=== PATIENT | female | born 1985 | race Hispanic/Latino ===

== ENCOUNTER 2017-12-14 22:35 | Emergency (ER) | payer SELFPAY ==
--- NOTE | 2017-12-15 00:02 | ER ---
Nurse's Notes [facility] Name: Antonella Guzman Age: 32 yrs Sex: Female : 1985 Arrival Date: 12/14/2017 Time: 22:46 Bed 14 Private MD: Diagnosis: Acute sinusitis Presentation: 12/14 22:56 Presenting complaint: Patient states: Cough, congestion, fever x 4 days; pain to face, lp1 congestion worse at night. Transition of care: patient was not received from another setting of care. Onset of symptoms was December 14, 2017. Initial Sepsis Screen: Does the patient meet any 2 criteria? No. Patient's initial sepsis screen is negative. Does the patient have a suspected source of infection? No. Patient's initial sepsis screen is negative. Care prior to arrival: None. 22:56 Method Of Arrival: Ambulatory lp1 22:56 Acuity: JOLEEN 4 lp1 Triage Assessment: 23:00 General: Appears ill, Behavior is calm, cooperative, appropriate for age. Pain: lp1 Complains of pain in right cheek and left cheek, head. EENT: Reports nasal congestion. Neuro: Level of Consciousness is awake, alert, obeys commands, Oriented to person, place, time, situation. Cardiovascular: Patient's skin is warm and dry. Respiratory: Reports cough that is dry, persistent Respiratory effort is even, unlabored, Breath sounds are clear bilaterally. GI: No signs and/or symptoms were reported involving the gastrointestinal system. : No signs and/or symptoms were reported regarding the genitourinary system. Derm: Skin is pink, warm \T\ dry. Musculoskeletal: Circulation, motion, and sensation intact. 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 - Social history:: Smoking status: Patient/guardian denies using tobacco. Screenin:02 Abuse screen: Denies threats or abuse. Denies injuries from another. Nutritional lp1 screening: No deficits noted. Tuberculosis screening: No symptoms or risk factors identified. Fall Risk None identified. Assessment: 23:01 Reassessment: See Triage assessment. lp1 Vital Signs: 23:00 BP 110 / 75; Pulse 91; Resp 16; Temp 98.7(O); Pulse Ox 98% on R/A; Weight 65.77 kg; lp1 Height 5 ft. 5 in. (165.10 cm); Pain 6/10; 23:00 Body Mass Index 24.13 (65.77 kg, 165.10 cm) lp1 ED Course: 22:46 Patient arrived in ED. ds1 22:53 Dany Amaya NP is PHCP. pm1 22:53 Vick Tsang MD is Attending Physician. pm1 22:56 Maddie Boswell RN is Primary Nurse. lp1 22:58 Triage completed. lp1 22:58 Arm band placed on. lp1 23:02 Patient has correct armband on for positive identification. lp1 23:14 Strep swab sent to lab. lp1 23:41 No provider procedures requiring assistance completed. Patient did not have IV access lp1 during this emergency room visit. Administered Medications: No medications were administered Outcome: 12/15 00:01 Discharge ordered by . pm1 00:10 Discharged to home ambulatory, with significant other. lp1 00:10 Condition: good 00:10 Discharge instructions given to patient, Instructed on discharge instructions, follow up and referral plans. medication usage, Demonstrated understanding of instructions, follow-up care, medications, Prescriptions given X 2. 00:10 Patient left the ED. lp1 Signatures: Janie Velásquez ds1 Maddie Boswell RN RN lp1 Dany Amaya NP ANTHROPOLOGY LECTURER pm1
--- NOTE | 2017-12-15 00:03 | EDPHYS ---
Physician Documentation [facility] Name: Antonella Guzman Age: 32 yrs Sex: Female : 1985 Arrival Date: 12/14/2017 Time: 22:46 Bed 14 Private MD: ED Physician Vick Tsang HPI: 12/15 00:00 This 32 yrs old Female presents to ER via Ambulatory with complaints of Flu pm1 Symptoms. 00:00 The patient or guardian reports cough, flu symptoms, sinus congestion. Onset: The pm1 symptoms/episode began/occurred 4 day(s) ago. Severity of symptoms: in the emergency department the symptoms are actually worse. Modifying factors: The symptoms are alleviated by nothing, the symptoms are aggravated by nothing. Associated signs and symptoms: Pertinent positives: fever, sore throat, Pertinent negatives: chest pain, diarrhea, ear ache, nausea, vomiting. The patient has not recently seen a physician. Patient with fever up to 102 for the past four days with sore throat, sinus congestion, cough, and body aches. 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 - Social history:: Smoking status: Patient/guardian denies using tobacco. ROS: 12/15 00:00 Eyes: Negative for injury, pain, redness, and discharge. pm1 Neck: Negative for injury, pain, and swelling, Cardiovascular: Negative for chest pain, palpitations, and edema. Abdomen/GI: Negative for abdominal pain, nausea, vomiting, diarrhea, and constipation, Back: Negative for injury and pain, : Negative for injury, bleeding, discharge, and swelling, MS/Extremity: Negative for injury and deformity, Skin: Negative for injury, rash, and discoloration, Neuro: Negative for headache, weakness, numbness, tingling, and seizure. Constitutional: Positive for body aches, fever, Negative for poor PO intake. ENT: Positive for sinus congestion, sinus pain, sore throat, Negative for drainage from ear(s), ear pain. Respiratory: Positive for cough, Negative for shortness of breath, sputum production, wheezing. Exam: 00:00 Constitutional: This is a well developed, well nourished patient who is awake, alert, pm1 and in no acute distress. Eyes: Pupils equal round and reactive to light, extra-ocular motions intact. Lids and lashes normal. Conjunctiva and sclera are non-icteric and not injected. Cornea within normal limits. Periorbital areas with no swelling, redness, or edema. 00:00 Neck: Trachea midline, no thyromegaly or masses palpated, and no cervical lymphadenopathy. Supple, full range of motion without nuchal rigidity, or vertebral point tenderness. No Meningismus. Chest/axilla: Normal chest wall appearance and motion. Nontender with no deformity. No lesions are appreciated. Cardiovascular: Regular rate and rhythm with a normal S1 and S2. No gallops, murmurs, or rubs. No pulse deficits. Respiratory: Lungs have equal breath sounds bilaterally, clear to auscultation and percussion. No rales, rhonchi or wheezes noted. No increased work of breathing, no retractions or nasal flaring. Abdomen/GI: Soft, non-tender, with normal bowel sounds. No distension or tympany. No guarding or rebound. No evidence of tenderness throughout. Back: No spinal tenderness. No costovertebral tenderness. Full range of motion. 00:00 Head/face: Sinus tenderness, that is moderate, is located over the right frontal sinus and left frontal sinus. 00:00 ENT: External ear(s): are unremarkable, Ear canal(s): are normal, TM's: are normal, Nose: is normal, Mouth: is normal, Posterior pharynx: Airway: normal, no evidence of obstruction, patent, Tonsils: bilaterally enlarged, with erythema, Uvula: normal, midline, non-edematous, no erythema, peritonsillar mass, is not appreciated, pooling of secretions, is not appreciated. Vital Signs: 12/14 23:00 BP 110 / 75; Pulse 91; Resp 16; Temp 98.7(O); Pulse Ox 98% on R/A; Weight 65.77 kg; lp1 Height 5 ft. 5 in. (165.10 cm); Pain 6/10; 23:00 Body Mass Index 24.13 (65.77 kg, 165.10 cm) lp1 MDM: 23:03 Patient medically screened. pm1 12/15 00:01 Data reviewed: vital signs. Data interpreted: Pulse oximetry: on room air is 98 %. pm1 Interpretation: normal. Counseling: I had a detailed discussion with the patient and/or guardian regarding: the historical points, exam findings, and any diagnostic results supporting the discharge/admit diagnosis, lab results, the need for outpatient follow up, to return to the emergency department if symptoms worsen or persist or if there are any questions or concerns that arise at home. 12/14 23:07 Order name: Strep; Complete Time: 00:01 lp1 12/14 23:33 Order name: Throat Culture EDMS Administered Medications: No medications were administered Disposition: 12/15/17 00:01 Discharged to Home. Impression: Acute sinusitis. - Condition is Stable. - Discharge Instructions: Sinusitis, Adult. - Prescriptions for Augmentin 875- 125 mg Oral Tablet - take 1 tablet by ORAL route every 12 hours for 10 days; 20 tablet. Zyrtec- D 5-120 mg Oral Tablet Sustained Release 12 hr - take 1 tablet by ORAL route every 12 hours As needed; 20 tablet. - Medication Reconciliation Form, Thank You Letter, Antibiotic Education form. - Follow up: Emergency Department; When: As needed; Reason: Worsening of condition. Follow up: Private Physician; When: 2 - 3 days; Reason: Recheck today's complaints, Continuance of care, Re-evaluation by your physician. - Problem is new. - Symptoms have improved. Addendum: 12/19/2017 21:28 Co-signature as Attending Physician, Vick Tsang MD. g s Signatures: Dispatcher [employer] EDMS Maddie Boswell, RN RN lp1 Dany Amaya, SHANNON CAR RENTAL SALES ASSISTANT pm1 Vick Tsang MD MD
[2017-12-15 00:41] VITALS: BP 110/75; TEMP 98.7; O2SAT 98
== END 2017-12-15 00:10 | disposition home or self-care (01) ==
LOC: ER 22:35
DX: J01.90 Acute sinusitis, unspecified (principal)
CPT/HCPCS: 87070; 87081; 99283

== ENCOUNTER 2018-11-05 19:13 | Emergency (ER) | payer SELFPAY ==
[2018-11-05 22:01] LABS: Urine Blood 2+ (NEG); Urine Glucose NEGATIVE (NEG); Urine Protein 2+ (NEG)
[2018-11-05] MEDS ORDERED: NA CHLORIDE 0.9% 1,000 ML ONE (22:49)
[2018-11-05] MEDS ORDERED: KETOROLAC 30 MG/ML INJ ONE (22:49)
[2018-11-05 22:58] LABS: Absolute Lymphocytes (CBC) 2.3 K/uL (0.7-4.9); Absolute Monocytes 0.7 K/uL (0.1-1.3); Absolute Neutrophil 3.8 K/uL (1.8-8.0); Basophils % 0.3 % (0-1.3); Eosinophils % 0.7 % (0-4.4); Hematocrit 31.5 % (36.0-45.0); Lymphocytes % 34.1 % (15.3-44.8); MPV 9.5 fL (7.6-11.3); Monocytes % 9.5 % (3.3-12.3); RBC Red Blood Cell Count 3.79 M/uL (3.86-4.86)
[2018-11-05 23:16] LABS: ALT/SGPT 15 U/L (12-78); AST/SGOT 15 U/L (15-37); Albumin 3.6 g/dL (3.4-5.0); Alkaline Phosphatase 61 U/L (45-117); BUN Blood Urea Nitrogen 7 mg/dL (7-18); Bicarbonate 28 mmol/L (21-32); Bilirubin Direct < 0.1 mg/dL (0-0.2); Bilirubin Total 0.2 mg/dL (0.2-1.0); Glucose Level 109 mg/dL (74-106); Lipase 160 U/L (73-393); Potassium 3.5 mmol/L (3.5-5.1); Protein, Total 7.7 g/dL (6.4-8.2); Sodium Level 143 mmol/L (136-145)
--- NOTE | 2018-11-06 02:09 | EDPHYS ---
Physician Documentation [facility] Name: Antonella Guzman Age: 33 yrs Sex: Female : 1985 Arrival Date: 11/05/2018 Time: 19:14 Bed 13 Private MD: None, None ED Physician Otoniel Roger HPI: 11/06 00:14 This 33 yrs old Female presents to ER via Ambulatory with complaints of kb Abdominal Pain. 00:14 The patient presents with abdominal pain in the lower abdomen. Onset: The kb symptoms/episode began/occurred yesterday. The symptoms do not radiate. Associated signs and symptoms: none. The symptoms are described as constant. Modifying factors: The symptoms are alleviated by nothing, the symptoms are aggravated by nothing. Severity of pain: At its worst the pain was moderate in the emergency department the pain is unchanged. The patient has not experienced similar symptoms in the past. The patient has not recently seen a physician. 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 - Social history:: Smoking status: Patient/guardian denies using tobacco. - Ebola Screening: : No symptoms or risks identified at this time. ROS: 11/06 00:13 Constitutional: Negative for fever, chills, and weight loss, Cardiovascular: Negative kb for chest pain, palpitations, and edema, Respiratory: Negative for shortness of breath, cough, wheezing, and pleuritic chest pain, Back: Negative for injury and pain, MS/Extremity: Negative for injury and deformity, Skin: Negative for injury, rash, and discoloration, Neuro: Negative for headache, weakness, numbness, tingling, and seizure. Abdomen/GI: Positive for abdominal pain, Negative for nausea, vomiting, and diarrhea, constipation, abdominal cramps, abdominal distension, anorexia. Exam: 00:13 Constitutional: This is a well developed, well nourished patient who is awake, alert, kb and in no acute distress. Head/Face: Normocephalic, atraumatic. Chest/axilla: Normal chest wall appearance and motion. Nontender with no deformity. No lesions are appreciated. Cardiovascular: Regular rate and rhythm with a normal S1 and S2. No gallops, murmurs, or rubs. Normal PMI, no JVD. No pulse deficits. Respiratory: Lungs have equal breath sounds bilaterally, clear to auscultation and percussion. No rales, rhonchi or wheezes noted. No increased work of breathing, no retractions or nasal flaring. Back: No spinal tenderness. No costovertebral tenderness. Full range of motion. Skin: Warm, dry with normal turgor. Normal color with no rashes, no lesions, and no evidence of cellulitis. MS/ Extremity: Pulses equal, no cyanosis. Neurovascular intact. Full, normal range of motion. Neuro: Awake and alert, GCS 15, oriented to person, place, time, and situation. Cranial nerves II-XII grossly intact. Motor strength 5/5 in all extremities. Sensory grossly intact. Cerebellar exam normal. Normal gait. 00:13 Abdomen/GI: Inspection: abdomen appears normal, Bowel sounds: normal, in all quadrants, Palpation: soft, in all quadrants, moderate abdominal tenderness, in the right lower quadrant and left lower quadrant. Vital Signs: 11/05 19:27 BP 112 / 88; Pulse 92; Resp 16; Temp 98(TE); Pulse Ox 100% ; Weight 65.77 kg; Height 5 ea ft. 4 in. (162.56 cm); Pain 7/10; 21:55 BP 129 / 98 LA (auto/reg); Pulse 89; Resp 18; Pulse Ox 98% on R/A; Pain 6/10; jp3 22:40 BP 121 / 83; Pulse 81; Resp 17; Pulse Ox 99% ; rr5 11/06 00:00 BP 119 / 70; Pulse 80; Resp 16; Pulse Ox 98% ; rr5 01:00 BP 115 / 82; Pulse 66; Resp 17; Pulse Ox 99% ; rr5 02:10 BP 110 / 72; Pulse 70; Resp 16; Pulse Ox 99% ; rr5 11/05 19:27 Body Mass Index 24.89 (65.77 kg, 162.56 cm) ea MDM: 11/05 21:48 Patient medically screened. [place] 11/06 00:12 Data reviewed: vital signs, nurses notes. Data interpreted: Pulse oximetry: on room air kb is 98 %. Interpretation: normal. Counseling: I had a detailed discussion with the patient and/or guardian regarding: the historical points, exam findings, and any diagnostic results supporting the discharge/admit diagnosis, lab results, radiology results, the need for outpatient follow up, a family practitioner, to return to the emergency department if symptoms worsen or persist or if there are any questions or concerns that arise at home. 11/05 21:26 Order name: Urine Dipstick--Ancillary (enter results); Complete Time: 22:05 ms 11/05 21:26 Order name: Urine --Ancillary (enter results); Complete Time: 22:05 ms 11/05 22:15 Order name: Basic Metabolic Panel; Complete Time: 23:17 kb 11/05 22:15 Order name: CBC with Diff; Complete Time: 23:06 kb 11/05 22:15 Order name: Hepatic Function; Complete Time: 23:17 kb 11/05 22:15 Order name: Lipase; Complete Time: 23:17 kb 11/05 22:15 Order name: IV Saline Lock; Complete Time: 22:43 kb 11/05 22:15 Order name: Labs collected and sent; Complete Time: 22:43 kb 11/05 22:15 Order name: CT Abd/Pelvis - W/Contrast kb Administered Medications: 11/05 22:43 Drug: NS 0.9% 1000 ml Route: IV; Rate: 1000 ml; Site: left antecubital; rr5 11/06 00:00 Follow up: Response: No adverse reaction; IV Status: Completed infusion; IV Intake: rr5 1000ml 11/05 22:43 Drug: TORadol 30 mg Route: IVP; Site: left antecubital; rr5 11/06 00:45 Follow up: Response: No adverse reaction rr5 Disposition: 10:22 Co-signature as Attending Physician, Otoniel Roger MD I agree with the assessment and wa plan of care. Disposition: 11/06/18 02:09 Discharged to Home. Impression: Unspecified ovarian cysts. - Condition is Stable. - Discharge Instructions: Ovarian Cyst, [id number]. - Prescriptions for Diclofenac Sodium 75 mg Oral Tablet, Delayed Release (E.C.) - take 1 tablet by ORAL route 2 times per day As needed; 30 tablet. - Medication Reconciliation Form, Thank You Letter, Antibiotic Education, Prescription Opioid Use form. - Follow up: Emergency Department; When: As needed; Reason: Worsening of condition. Follow up: Private Physician; When: 2 - 3 days; Reason: Recheck today's complaints, Continuance of care, Re-evaluation by your physician. Signatures: Dispatcher [employer] EDMI Aric Hollisistin, BHARTI-C LAB[employer]ER [employer]-Becky Cisneros, RN RN Otoniel Martinez MD MD wa Roque, Raymond RN RN rr5 Corrections: (The following items were deleted from the chart) 02:25 02:09 11/06/2018 02:09 Discharged to Home. Impression: Unspecified ovarian cysts. rr5 Condition is Stable. Forms are Medication Reconciliation Form, Thank You Letter, Antibiotic Education, Prescription Opioid Use. Follow up: Emergency Department; When: As needed; Reason: Worsening of condition. Follow up: Private Physician; When: 2 - 3 days; Reason: Recheck today's complaints, Continuance of care, Re-evaluation by your physician. kb
--- NOTE | 2018-11-06 02:09 | ER ---
Nurse's Notes [facility] Name: Antonella Guzman Age: 33 yrs Sex: Female : 1985 Arrival Date: 11/05/2018 Time: 19:14 Bed 13 Private MD: None, None Diagnosis: Unspecified ovarian cysts Presentation: 11/05 19:21 Presenting complaint: Patient states: Last night started having abdominal pain in right ea lower abdominal area, pt states "lot of pressure in cervix". Transition of care: patient was not received from another setting of care. Onset of symptoms was November 05, 2018. Risk Assessment: Do you want to hurt yourself or someone else? Patient reports no desire to harm self or others. Initial Sepsis Screen: Does the patient meet any 2 criteria? No. Patient's initial sepsis screen is negative. Does the patient have a suspected source of infection? No. Patient's initial sepsis screen is negative. Care prior to arrival: None. 19:21 Method Of Arrival: Ambulatory ea 19:21 Acuity: JOLEEN 3 ea Triage Assessment: 19:24 General: Appears uncomfortable, Behavior is calm, cooperative, appropriate for age. ea Pain: Complains of pain in right lower quadrant and left lower quadrant Pain currently is 7 out of 10 on a pain scale. Quality of pain is described as aching. GI: Reports lower abdominal pain. GI: Patient currently denies diarrhea, nausea, vomiting. 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 - Social history:: Smoking status: Patient/guardian denies using tobacco. - Ebola Screening: : No symptoms or risks identified at this time. Screenin:00 Abuse screen: Denies threats or abuse. Denies injuries from another. Nutritional rr5 screening: No deficits noted. Tuberculosis screening: No symptoms or risk factors identified. Fall Risk IV access (20 points). Total Walker Fall Scale indicates No Risk (0-24 pts). Assessment: 22:25 General: Appears in no apparent distress. uncomfortable, Behavior is calm, cooperative, rr5 appropriate for age. Pain: Complains of pain in right lower quadrant and left lower quadrant Pain does not radiate. Pain currently is 6 out of 10 on a pain scale. Quality of pain is described as aching, Pain began gradually, Is intermittent. 22:25 Neuro: Level of Consciousness is awake, alert, obeys commands, Oriented to person, rr5 place, time, situation, Appropriate for age. Cardiovascular: Capillary refill < 3 seconds Patient's skin is warm and dry. Respiratory: Airway is patent Respiratory effort is even, unlabored, Respiratory pattern is regular, symmetrical. GI: Abdomen is round Bowel sounds present X 4 quads. Guarding noted in right lower quadrant and left lower quadrant. : No signs and/or symptoms were reported regarding the genitourinary system. EENT: No signs and/or symptoms were reported regarding the EENT system. Derm: Skin temperature is warm. Musculoskeletal: Capillary refill < 3 seconds. 23:45 Reassessment: Patient appears in no apparent distress at this time. Patient is alert, rr5 oriented x 3, equal unlabored respirations, skin warm/dry/pink. awaiting for ct scan procedure. follow up to CT scan Patient states symptoms have improved. 11/06 00:30 Reassessment: no complaints made. rr5 01:15 Reassessment: Patient appears in no apparent distress at this time. Patient is alert, rr5 oriented x 3, equal unlabored respirations, skin warm/dry/pink. awaiting for CT result. 01:50 Reassessment: Patient appears in no apparent distress at this time. asleep comfortably rr5 on bed. 02:20 Reassessment: Patient appears in no apparent distress at this time. Patient is alert, rr5 oriented x 3, equal unlabored respirations, skin warm/dry/pink. discharge instruction given and explained without complaints made. Vital Signs: 11/05 19:27 BP 112 / 88; Pulse 92; Resp 16; Temp 98(TE); Pulse Ox 100% ; Weight 65.77 kg; Height 5 ea ft. 4 in. (162.56 cm); Pain 7/10; 21:55 BP 129 / 98 LA (auto/reg); Pulse 89; Resp 18; Pulse Ox 98% on R/A; Pain 6/10; jp3 22:40 BP 121 / 83; Pulse 81; Resp 17; Pulse Ox 99% ; rr5 11/06 00:00 BP 119 / 70; Pulse 80; Resp 16; Pulse Ox 98% ; rr5 01:00 BP 115 / 82; Pulse 66; Resp 17; Pulse Ox 99% ; rr5 02:10 BP 110 / 72; Pulse 70; Resp 16; Pulse Ox 99% ; rr5 11/05 19:27 Body Mass Index 24.89 (65.77 kg, 162.56 cm) ED Course: 11/05 19:14 Patient arrived in ED. dl4 19:14 None, None is Private Physician. dl4 19:23 Triage completed. ea 21:48 Haritha Hollis FNP-C is [facility]. kb 21:48 Otoniel Roger MD is Attending Physician. kb 21:56 Bed in low position. Call light in reach. Side rails up X 1. Warm blanket given. Pillow jp3 given. Pulse ox on. NIBP on. 22:18 Radiology exam delayed due to lab results not completed at this time. (BUN/Creatinine). vm2 22:20 Inserted saline lock: 22 gauge in left antecubital area, using aseptic technique. rr5 ,using aseptic technique. by Critical access hospital tech Blood collected. 22:24 Kamaljit Vela, RN is Primary Nurse. rr5 22:25 Arm band placed on right wrist. rr5 11/06 00:58 CT Abd/Pelvis - W/Contrast In Process Unspecified. EDMS 02:23 No provider procedures requiring assistance completed. IV discontinued, intact, rr5 bleeding controlled, No redness/swelling at site. Pressure dressing applied. Administered Medications: 11/05 22:43 Drug: NS 0.9% 1000 ml Route: IV; Rate: 1000 ml; Site: left antecubital; rr5 11/06 00:00 Follow up: Response: No adverse reaction; IV Status: Completed infusion; IV Intake: rr5 1000ml 11/05 22:43 Drug: TORadol 30 mg Route: IVP; Site: left antecubital; rr5 11/06 00:45 Follow up: Response: No adverse reaction rr5 Intake: 00:00 IV: 1000ml; Total: 1000ml. rr5 Outcome: 02:09 Discharge ordered by . kb 02:23 Discharged to home ambulatory. rr5 02:23 Condition: stable 02:23 Discharge instructions given to patient, Instructed on discharge instructions, follow up and referral plans. Demonstrated understanding of instructions, follow-up care, medications, Prescriptions given X 1. 02:25 Patient left the ED. rr5 Signatures: Dispatcher [employer] EDHaritha Escobar, PAIGEC SENIOR ARCHITECT/DESIGN MANAGER-Antonella Dickens 2 Becky Townsend, RN RN Ganesh Whitney jp3 Kamaljit Vela RN RN rr5 Troy Mathis dl4 Corrections: (The following items were deleted from the chart) 11/05 19:31 19:21 Acuity: JOLEEN 4 ea ea
[2018-11-06 03:10] VITALS: TEMP 98
[2018-11-06 03:16] VITALS: O2SAT 99
[2018-11-06 03:17] VITALS: BP 110/72
--- NOTE | 2018-11-06 12:09 | RAD REPORT ---
EXAM DESCRIPTION: CT - Abdomen Pelvis W Contrast - 11/06/2018 12:58 am CLINICAL HISTORY: The patient is 33 years old and is Female; Abd pain TECHNIQUE: Axial computed tomography images of the abdomen and pelvis with intravenous contrast. S agittal and coronal reformatted images were created and reviewed. This CT exam was performed using one or more of the following dose reduction techniques: automated exposure control, adjustment of t he mA and/or kV according to patient size, and/or use of iterative reconstruction technique. COMPARISON: No relevant prior studies available. FINDINGS: Lung bases: Unremarkable. No mass. No consolidation. ABDOMEN: Liver: Unremarkable. No mass. Gallbladder and bile ducts: The gallbladder is contracted. Pancreas: No ductal dilation. No mass. Spleen: The spleen is heterogeneous, secondary to the phase of contrast. Adrenals: Unremarkable. No mass. Kidneys and ureters: Unremarkable. No solid mass. No hydronephrosis. Stomach and bowel: The stomach is distended with food contents. The small bowel is decompressed. A moderate amount of stool is present throughout the colon. Scattered colonic diverticula are presen t without surrounding inflammation. There is no bowel obstruction. PELVIS: Appendix: The appendix is normal in caliber without surrounding inflammation. Bladder: The bladder is decompressed. Reproductive: A small 1.2 cm left ovarian cyst is present. No follow-up imaging is recommended. The uterus and right ovary are unremarkable. ABDOMEN and PELVIS: Intraperitoneal space: Trace free fluid is present within the pelvis which is likely physiologic . No free air. Bones/joints: No acute fracture. Soft tissues: A small fat-containing umbilical hernia is present. Vasculature: Unremarkable. No abdominal aortic aneurysm. Lymph nodes: Unremarkable. No enlarged lymph nodes. IMPRESSION: No acute findings on this contrasted CT of the abdomen and pelvis to explain the patient 's symptoms. Electronically signed by: Cyndi Lujan MD 11/06/2018 1:11 AM CDT Due to temporary technical issues with the PACS/Fluency reporting system, reports are being signed by the in house radiologist as a courtesy to ensure prompt reporting. The interpreting radiologist is f ully responsible for the content of the report.
== END 2018-11-06 02:25 | disposition home or self-care (01) ==
LOC: ER 19:13
DX: N83.209 Unspecified ovarian cyst, unspecified side (principal)
CPT/HCPCS: 36415; 74177; 80048; 80076; 81003; 81025; 83690; 85025; 96361; 96374; 99284; J7030; Q9967

== ENCOUNTER 2019-04-05 01:45 | Emergency (ER) | payer SELFPAY ==
[2019-04-05] MEDS ORDERED: HYDROCODONE/APAP 7.5/325 MG TAB ONE (02:27)
--- NOTE | 2019-04-05 02:44 | EDPHYS ---
Physician Documentation [facility] Name: Antonella Guzman Age: 33 yrs Sex: Female : 1985 Arrival Date: 04/05/2019 Time: 01:47 Bed 18 Private MD: ED Physician Levi Natarajan HPI: 04/05 02:08 This 33 yrs old Female presents to ER via Ambulatory with complaints of Toe snw Injury. 02:08 The patient presents with a contusion, decreased range of motion, a deformity, pain, snw that is acute. The complaints affect the right foot. Context: The problem was sustained at home, resulted from the patient kicking, furniture, the patient can partially bear weight, the patient is able to ambulate. Onset: The symptoms/episode began/occurred suddenly, just prior to arrival. Associated signs and symptoms: The patient has no apparent associated signs or symptoms. Severity of symptoms: At their worst the symptoms were moderate. The patient has not experienced similar symptoms in the past. It is unknown whether or not the patient has recently seen a physician. 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 - Social history:: Smoking status: Patient/guardian denies using tobacco, Patient/guardian denies using alcohol, street drugs. - Ebola Screening: : Patient negative for fever greater than or equal to 101.5 degrees Fahrenheit, and additional compatible Ebola Virus Disease symptoms Patient denies exposure to infectious person Patient denies travel to an Ebola-affected area in the 21 days before illness onset. ROS: 02:06 Constitutional: Negative for fever, chills, and weight loss, Eyes: Negative for injury, snw pain, redness, and discharge, ENT: Negative for injury, pain, and discharge, Neck: Negative for injury, pain, and swelling, Cardiovascular: Negative for chest pain, palpitations, and edema, Respiratory: Negative for shortness of breath, cough, wheezing, and pleuritic chest pain, Abdomen/GI: Negative for abdominal pain, nausea, vomiting, diarrhea, and constipation, Back: Negative for injury and pain, : Negative for injury, bleeding, discharge, and swelling, Skin: Negative for injury, rash, and discoloration, Neuro: Negative for headache, weakness, numbness, tingling, and seizure. 02:06 MS/extremity: Positive for injury or acute deformity, decreased range of motion, ecchymosis, pain, of the left fifth toe and Left fifth toenail. Exam: 02:06 Constitutional: This is a well developed, well nourished patient who is awake, alert, snw and in no acute distress. Head/Face: Normocephalic, atraumatic. Eyes: Pupils equal round and reactive to light, extra-ocular motions intact. Lids and lashes normal. Conjunctiva and sclera are non-icteric and not injected. Cornea within normal limits. Periorbital areas with no swelling, redness, or edema. ENT: Nares patent. No nasal discharge, no septal abnormalities noted. Tympanic membranes are normal and external auditory canals are clear. Oropharynx with no redness, swelling, or masses, exudates, or evidence of obstruction, uvula midline. Mucous membranes moist. Neck: Trachea midline, no thyromegaly or masses palpated, and no cervical lymphadenopathy. Supple, full range of motion without nuchal rigidity, or vertebral point tenderness. No Meningismus. Chest/axilla: Normal chest wall appearance and motion. Nontender with no deformity. No lesions are appreciated. Cardiovascular: Regular rate and rhythm with a normal S1 and S2. No gallops, murmurs, or rubs. Normal PMI, no JVD. No pulse deficits. Respiratory: Lungs have equal breath sounds bilaterally, clear to auscultation and percussion. No rales, rhonchi or wheezes noted. No increased work of breathing, no retractions or nasal flaring. Abdomen/GI: Soft, non-tender, with normal bowel sounds. No distension or tympany. No guarding or rebound. No evidence of tenderness throughout. Back: No spinal tenderness. No costovertebral tenderness. Full range of motion. Skin: Warm, dry with normal turgor. Normal color with no rashes, no lesions, and no evidence of cellulitis. Neuro: Awake and alert, GCS 15, oriented to person, place, time, and situation. Cranial nerves II-XII grossly intact. Motor strength 5/5 in all extremities. Sensory grossly intact. Cerebellar exam normal. Normal gait. Psych: Awake, alert, with orientation to person, place and time. Behavior, mood, and affect are within normal limits. 02:06 Musculoskeletal/extremity: Extremities: grossly normal except: noted in the left fifth toe: contusion, decreased ROM, deformity, ecchymosis, swelling, tenderness. Vital Signs: 01:55 BP 120 / 85; Pulse 83; Resp 16; Temp 98.5; Pulse Ox 100% ; Weight 67.13 kg; Height 5 rr5 ft. 4 in. (162.56 cm); Pain 8/10; 03:00 BP 117 / 81; Pulse 80; Resp 16; Pulse Ox 99% on R/A; rr5 01:55 Body Mass Index 25.40 (67.13 kg, 162.56 cm) rr5 MDM: 02:01 Patient medically screened. snw 02:43 Data reviewed: vital signs, nurses notes. Data interpreted: Pulse oximetry: on room air snw is 100 %. Interpretation: normal. Counseling: I had a detailed discussion with the patient and/or guardian regarding: the historical points, exam findings, and any diagnostic results supporting the discharge/admit diagnosis, radiology results, to return to the emergency department if symptoms worsen or persist or if there are any questions or concerns that arise at home. 04/05 02:06 Order name: XRAY Foot LEFT 3 View snw 08 02:43 Order name: Post-op shoe; Complete Time: 02:57 snw Administered Medications: 02:29 Drug: [place] (7.5 mg-325 mg) 1 tabs Route: PO; rr5 03:04 Follow up: Response: No adverse reaction; RASS: Alert and Calm (0) rr5 Disposition: 07:00 Co-signature as Attending Physician, Levi Natarajan MD Available for consultation at ps1 all times . Disposition: 04/05/19 02:42 Discharged to Home. Impression: Contusion of left great toe without damage to nail. - Condition is Stable. - Discharge Instructions: Contusion, Cast or Splint Care, Adult, RICE for Routine Care of Injuries. - Prescriptions for Mobic 7.5 mg Oral Tablet - take 1 tablet by ORAL route once daily take with food; 20 tablet. - Work release form, Medication Reconciliation Form, Thank You Letter, Antibiotic Education, Prescription Opioid Use form. - Follow up: Private Physician; When: 2 - 3 days; Reason: Recheck today's complaints, Continuance of care, Re-evaluation by your physician. Follow up: Emergency Department; When: As needed; Reason: Worsening of condition. Signatures: Dispatcher [employer] EDMS Mouna Montesinos, BILINGUAL NANNY-C BILINGUAL NANNY-Csnw Levi Natarajan MD MD ps1 Kamaljit Vela RN RN rr5 Corrections: (The following items were deleted from the chart) 03:04 02:42 04/05/2019 02:42 Discharged to Home. Impression: Contusion of left great toe rr5 without damage to nail. Condition is Stable. Forms are Medication Reconciliation Form, Thank You Letter, Antibiotic Education, Prescription Opioid Use. Follow up: Private Physician; When: 2 - 3 days; Reason: Recheck today's complaints, Continuance of care, Re-evaluation by your physician. Follow up: Emergency Department; When: As needed; Reason: Worsening of condition. snw
--- NOTE | 2019-04-05 02:44 | ER ---
Nurse's Notes [facility] Name: Antonella Guzman Age: 33 yrs Sex: Female : 1985 Arrival Date: 04/05/2019 Time: 01:47 Bed 18 Private MD: Diagnosis: Contusion of left great toe without damage to nail Presentation: 04/05 01:55 Presenting complaint: Patient states: around 0100H I was playing around accidentally rr5 kick my fifth toe on a bed post and now its hurting. 01:55 Transition of care: patient was not received from another setting of care. Onset of rr5 symptoms was April 05, 2019 at 01:00. Risk Assessment: Do you want to hurt yourself or someone else? Patient reports no desire to harm self or others. Initial Sepsis Screen: Does the patient meet any 2 criteria? No. Patient's initial sepsis screen is negative. Does the patient have a suspected source of infection? No. Patient's initial sepsis screen is negative. Care prior to arrival: None. 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 - Social history:: Smoking status: Patient/guardian denies using tobacco, Patient/guardian denies using alcohol, street drugs. - Ebola Screening: : Patient negative for fever greater than or equal to 101.5 degrees Fahrenheit, and additional compatible Ebola Virus Disease symptoms Patient denies exposure to infectious person Patient denies travel to an Ebola-affected area in the 21 days before illness onset. Screenin:55 Abuse screen: Denies threats or abuse. Denies injuries from another. Nutritional rr5 screening: No deficits noted. Tuberculosis screening: No symptoms or risk factors identified. Fall Risk None identified. Total Walker Fall Scale indicates No Risk (0-24 pts). Assessment: 01:55 General: Appears in no apparent distress. uncomfortable, Behavior is calm, cooperative, rr5 appropriate for age. 01:55 Pain: Complains of pain in left fifth toe Pain does not radiate. Pain currently is 8 rr5 out of 10 on a pain scale. Quality of pain is described as aching, Pain began suddenly, Is intermittent. Neuro: Level of Consciousness is awake, alert, obeys commands, Oriented to person, place, time, situation, Appropriate for age. Cardiovascular: Capillary refill < 3 seconds Patient's skin is warm and dry. Respiratory: Airway is patent Respiratory effort is even, unlabored, Respiratory pattern is regular, symmetrical. GI: No signs and/or symptoms were reported involving the gastrointestinal system. : No signs and/or symptoms were reported regarding the genitourinary system. EENT: No signs and/or symptoms were reported regarding the EENT system. Derm: Skin is intact, Skin temperature is warm. Musculoskeletal: Circulation, motion, and sensation intact. Capillary refill < 3 seconds, Swelling present in left fifth toe. 03:00 Reassessment: Patient appears in no apparent distress at this time. Patient is alert, rr5 oriented x 3, equal unlabored respirations, skin warm/dry/pink. discharge instruction given and explained without complaints made. Patient states feeling better. Patient states symptoms have improved. Vital Signs: 01:55 BP 120 / 85; Pulse 83; Resp 16; Temp 98.5; Pulse Ox 100% ; Weight 67.13 kg; Height 5 rr5 ft. 4 in. (162.56 cm); Pain 8/10; 03:00 BP 117 / 81; Pulse 80; Resp 16; Pulse Ox 99% on R/A; rr5 01:55 Body Mass Index 25.40 (67.13 kg, 162.56 cm) rr5 ED Course: 01:47 Patient arrived in ED. am2 01:50 Kamaljit Vela, RN is Primary Nurse. rr5 01:55 Arm band placed on. rr5 01:55 Patient has correct armband on for positive identification. Bed in low position. Call rr5 light in reach. 01:58 Triage completed. rr5 02:01 [facility]C [facility]. snw 02:01 Levi Natarajan MD is Attending Physician. snw 02:40 X-ray completed. Portable x-ray completed in exam room. Patient tolerated procedure kw well. 02:44 XRAY Foot LEFT 3 View In Process Unspecified. EDMS 03:02 No provider procedures requiring assistance completed. Patient did not have IV access rr5 during this emergency room visit. Administered Medications: 02:29 Drug: [place] (7.5 mg-325 mg) 1 tabs Route: PO; rr5 03:04 Follow up: Response: No adverse reaction; RASS: Alert and Calm (0) rr5 Outcome: 02:42 Discharge ordered by . karley 03:02 Discharged to home ambulatory, with family. rr5 03:02 Condition: stable 03:02 Discharge instructions given to patient, Instructed on discharge instructions, follow up and referral plans. medication usage, Demonstrated understanding of instructions, follow-up care, medications, Prescriptions given X 1. 03:04 Patient left the ED. rr5 Signatures: Dispatcher [employer] EDMS Mouna Montesinos, YARDAGE CONTROL CLERK-C YARDAGE CONTROL CLERK-Angeliaw Wendy Carpenter Amanda am2 Roque, Raymond, RN RN rr5
[2019-04-05 03:31] VITALS: TEMP 98.5
[2019-04-05 03:33] VITALS: BP 117/81; O2SAT 99
--- NOTE | 2019-04-05 09:12 | RAD REPORT ---
EXAM DESCRIPTION: RAD - Foot Left 3 View - 04/05/2019 2:41 am CLINICAL HISTORY: Left foot pain, blunt force trauma to the fifth toe COMPARISON: None. FINDINGS: No gross fracture deformity is seen. There is subtle cortical irregularity along the later al base of the fifth middle phalanx. Faint lucency across the head of the fifth proximal phalanx is s een on only one view. No joint abnormality seen. Soft tissue swelling is present without foreign body . No other fracture changes seen. No acute or destructive bony process. No air or foreign body in the soft tissues. IMPRESSION: No gross fracture deformity seen. No distraction or angulation. Minimal additional findings detailed in the body of the report.
== END 2019-04-05 03:04 | disposition home or self-care (01) ==
LOC: ER 01:45
DX: S90.112A Contusion of left great toe without damage to nail, initial encounter (principal); W22.03XA Walked into furniture, initial encounter; Y93.9 Activity, unspecified; Y92.009 Unspecified place in unspecified non-institutional (private) residence as the place of occurrence of the external cause
CPT/HCPCS: 99283